=== PATIENT | female | born 1975 | race American Indian/Alaskan Native ===

== ENCOUNTER 2016-03-27 23:17 | Inpatient (IN) | payer OTHER ==
[2016-03-28 00:41] LABS: BUN/Creatinine Ratio 14.28; Blood Urea Nitrogen 10 mg/dL (7-17); Carbon Dioxide 27 mmol/L (22-30); Glucose 108 mg/dL (65-100); Sodium 138 mmol/L (137-145)
[2016-03-28 00:47] LABS: Anion Gap 16 mmol/L
[2016-03-28 01:29] LABS: Basophils % (Auto) 0.9 % (0.0-1.8); Eosinophils % (Auto) 1.9 % (0.0-4.3); Hematocrit 31.7 % (30.3-42.9); Hemoglobin 9.7 gm/dl (10.1-14.3); Mean Corpuscular HGB Conc 30 % (30-34); Mean Corpuscular Hemoglobin 21 pg (28-32); Mean Corpuscular Volume 70 fl (79-97); Platelet Count 346 K/mm3 (140-440); Red Blood Count 4.53 M/mm3 (3.65-5.03); Red Cell Distribution Width 19.8 % (13.2-15.2); White Blood Count 10.2 K/mm3 (4.5-11.0)
[2016-03-28 02:59] LABS: Bacteria,Urine 1+ /HPF (Negative); Mucus,Urine 2+ /HPF
[2016-03-28 03:35] LABS: Bilirubin,Urine Negative (Negative); Ketones,Urine Negative (Negative)
[2016-03-28 03:36] LABS: Blood,Urine Negative (Negative); Leukocyte Esterase,Urine Negative (Negative); Nitrite,Urine Negative (Negative); Protein,Urine <15 mg/dL mg/dL (Negative); Urobilinogen,Urine 0.2 mg/dL (<2.0)
[2016-03-28] MEDS ORDERED: MORPHINE IV ONE (15:13)
[2016-03-28] MEDS ORDERED: ZOFRAN IV ONE (15:13)
[2016-03-28] MEDS ORDERED: NITRO-BID 2% TP ONE (15:13)
--- NOTE | 2016-03-28 15:18 | Emergency Department Report ---
HPI - General Chief Complaint: Chest Pain Time Seen by Provider: 03/28/16 15:02 - HPI HPI: Room 7 The patient is a 40-year-old female presenting with a chief complaint of chest pain. Patient states for the past 2 days she intermittent left chest pain that is sharp in nature. The patient states pain is breath but denies nausea/ vomiting or diaphoresis. Patient denies cough or fever. The patient currently gives her pain a score of 9/10. The patient states she's never had a stress test or cardiac catheterization. Patient denies any recent flights or long car trips Location: Left chest Duration: Intermittent 2 days Quality: Sharp Severity: 9/10 Modifying factors: Unknown Context: [see above] Mode of transportation: [not driving] ED Past Medical Hx - Past Medical History Previous Medical History?: Yes Hx Hypertension: Yes Hx Asthma: Yes Additional medical history: BRONCHITIS - Surgical History Past Surgical History?: Yes Additional Surgical History: "" - Family History Family history: no significant - Social History Smoking Status: Never Smoker Substance Use Type: Alcohol (occasional) - Medications Home Medications: Home Medications Medication Instructions Recorded Confirmed Last Taken Type ALBUTEROL Inhaler [ProAir HFA 1 puff IH Q4H PRN #1 inha 06/07/14 03/28/16 Unknown Rx Inhaler] guaiFENesin/CODEINE [Robitussin AC] 15 ml PO Q6H PRN #100 ml 06/07/14 03/28/16 Unknown Rx predniSONE [Deltasone] 10 mg PO QDAY PRN 03/28/16 03/28/16 Unknown History ED Review of Systems ROS: Stated complaint: CP/BACK PAIN/LUCERO Other details as noted in HPI Comment: All other systems reviewed and negative Constitutional: denies: fever Eyes: denies: eye pain, eye discharge, vision change ENT: denies: ear pain, throat pain Respiratory: shortness of breath Cardiovascular: chest pain Endocrine: no symptoms reported Gastrointestinal: denies: abdominal pain, nausea, diarrhea Genitourinary: denies: urgency, dysuria, discharge Musculoskeletal: back pain Skin: denies: rash, lesions Neurological: denies: headache, weakness, paresthesias Psychiatric: denies: anxiety, depression Hematological/Lymphatic: denies: easy bleeding, easy bruising Physical Exam - Physical Exam Vital Signs: Vital Signs 01/03/28/16 03/28/16 23:23 08:36 14:23 Temperature 98.6 F 98.0 F Pulse Rate 92 H 81 76 Respiratory 20 20 18 Rate Blood Pressure 148/91 Blood Pressure 131/83 140/74 [Right] O2 Sat by Pulse 100 100 100 Oximetry Physical Exam: GENERAL: The patient is well-developed well-nourished female lying on stretcher not appearing to be in acute distress. [] HEENT: Normocephalic. Atraumatic. Extraocular motions are intact. Patient has moist mucous membranes. NECK: Supple. Trachea midline CHEST/LUNGS: Clear to auscultation. There is no respiratory distress noted. HEART/CARDIOVASCULAR: Regular. There is no tachycardia. There is no gallop rub or murmur. ABDOMEN: Abdomen is soft, nontender. Patient has normal bowel sounds. There is no abdominal distention. SKIN: There is no rash. There is no edema. There is no diaphoresis. NEURO: The patient is awake, alert, and oriented. The patient is cooperative. The patient has normal speech MUSCULOSKELETAL: There is lumbar pain signs worsened with movement. There is no axial step off. There is no evidence of acute injury. ED Course Vital Signs 03/27/16 03/28/16 03/28/16 23:23 08:36 14:23 Temperature 98.6 F 98.0 F Pulse Rate 92 H 81 76 Respiratory 20 20 18 Rate Blood Pressure 148/91 Blood Pressure 131/83 140/74 [Right] O2 Sat by Pulse 100 100 100 Oximetry ED Medical Decision Making - Lab Data Result diagrams: 03/28/16 00:03 03/28/16 00:03 Laboratory Tests 03/28/16 03/28/16 03/28/16 00:03 00:03 01:50 WBC 10.2 RBC 4.53 Hgb 9.7 L Hct 31.7 MCV 70 L MCH 21 L MCHC 30 RDW 19.8 H Plt Count 346 Lymph % (Auto) 28.1 [place] % (Auto) 9.0 H Eos % (Auto) 1.9 Baso % (Auto) 0.9 Lymph # 2.9 [place] # 0.9 H Eos # 0.2 Baso # 0.1 Seg Neutrophils % 60.1 Seg Neutrophils # 6.1 Sodium 138 Potassium 4.0 Chloride 99.0 Carbon Dioxide 27 Anion Gap 16 BUN 10 Creatinine 0.7 Estimated GFR > 60 BUN/Creatinine Ratio 14.28 Glucose 108 H Calcium 9.0 Troponin T < 0.010 Urine Color Yellow Urine Turbidity Clear Urine pH 5.0 Ur Specific [place] 1.025 Urine Protein <15 mg/dl Urine Glucose (UA) Negative Urine Ketones Negative Urine Blood Negative Urine Nitrite Negative Ur Reducing Substances Not Reportable Urine Bilirubin Negative Urine Ictotest Not Reportable Urine Urobilinogen 0.2 Ur Leukocyte Esterase Negative Urine WBC (Auto) 10.0 H Urine RBC (Auto) 2.0 U Epithel Cells (Auto) 1.0 Urine Bacteria (Auto) 1+ Urine Mucus 2+ Urine HCG, Qual Negative 03/28/16 03/28/16 02:57 06:14 WBC RBC Hgb Hct MCV MCH MCHC RDW Plt Count Lymph % (Auto) [place] % (Auto) Eos % (Auto) Baso % (Auto) Lymph # [place] # Eos # Baso # Seg Neutrophils % Seg Neutrophils # Sodium Potassium Chloride Carbon Dioxide Anion Gap BUN Creatinine Estimated GFR BUN/Creatinine Ratio Glucose Calcium Troponin T < 0.010 < 0.010 Urine Color Urine Turbidity Urine pH Ur Specific [place] Urine Protein Urine Glucose (UA) Urine Ketones Urine Blood Urine Nitrite Ur Reducing Substances Urine Bilirubin Urine Ictotest Urine Urobilinogen Ur Leukocyte Esterase Urine WBC (Auto) Urine RBC (Auto) U Epithel Cells (Auto) Urine Bacteria (Auto) Urine Mucus Urine HCG, Qual - EKG Data -: EKG Interpreted by Me EKG shows normal: sinus rhythm Rate: normal - EKG Data When compared to previous EKG there are: previous EKG unavailable - Radiology Data Radiology results: image reviewed (chest x-ray) interpreted by me: Chest x-ray-no focal infiltrates, no pneumothorax - Differential Diagnosis ACS, pericarditis, GERD Critical care attestation.: If time is entered above; I have spent that time in minutes in the direct care of this critically ill patient, excluding procedure time. ED Disposition Clinical Impression: Chest pain Disposition: OP ADMITTED IP TO THIS HOSP Is pt being admited?: Yes Does the pt Need Aspirin: Yes Condition: Fair Instructions: Chest Pain (ED) Referrals: PRIMARY CARE, [Primary Care Provider] - 3-5 Days Time of Disposition: 15:25 (hospitalist notified)
[2016-03-28] MEDS ORDERED: ASPIRIN PO ONE (15:26)
--- NOTE | 2016-03-28 20:35 | Admit Criteria Form ---
Admission Criteria Documentation: CARDIOLOGY GRG Clinical Indications for Admission to Inpatient Care ( Place 'X' for any and all applicable criteria): Hospital admission is needed for appropriate care of the patient because of ANY ONE of the following (1): [ ] I. Hemodynamic instability as indicated by ALL of the following (1)(2)(3) (4)(5) [ ]a) Vital signs or other findings not as expected for chronic patient condition or baseline [ ]b) Instability indicated by ANY ONE of the following: [ ]i) Hypotension [ ]ii) Symptomatic Tachycardia unresponsive to treatment ( e.g., analgesia, fluids, sedation as indicated) [ ]iii) Inadequate perfusion indicated by ANY ONE of the following: [ ] 1) Lactic acidosis (> 2 mmol/L) [ ] 2) New abnormal capillary refill (> 3 seconds) [ ] 3) Reduced urine output [ ] 4) New altered mental status [ ]iv) Orthostatic vital sign changes unresponsive to treatment (e.g., fluids) [ ]v) IV inotropic or vasopressor medication required to maintain adequate blood pressure or perfusion [ ] II. Severe heart failure as indicated by ANY ONE of the following(17)(18) [ ]a) Respiratory distress [ ]b) Hypotension [ ]c) Anasarca (refractory to outpatient therapy) [ ]d) Cardiac arrhythmias of immediate concern [ ]e) Myocardial ischemia [ ] III. Cardiac arrhythmias or findings of immediate concern indicated by ANY ONE of the following (19)(20): [ ] a) Heart rhythms that are inherently dangerous or unstable indicated by ANY ONE of the following (21)(22)(23): [ ] i) Resuscitated ventricular fibrillation or cardiac arrest [ ] ii) Ventricular escape rhythm [ ] iii) Sustained ventricular tachycardia (30 seconds or more of ventricular rhythm at greater than 100 beats per minute) [ ] iv) Nonsustained ventricular tachycardia and ANY ONE of the following: [ ] 1) Suspected cardiac ischemia as cause or consequence of ventricular tachycardia [ ] 2) In setting of acute myocarditis [ ] b) Unstable cardiac conduction defects indicated by ANY ONE of the following(23)(24)(25) [ ] i) Type II second-degree atrioventricular block [ ]ii) Third-degree atrioventricular block [ ]iii) New-onset left bundle branch block with suspected myocardial ischemia [ ]c) Any heart rhythm and ANY ONE of the following (21)(22)(26)(27) (28) [ ] i) Continuous long-term ECG monitoring needed (e.g., initiation of drug requiring monitoring for more than 24 hours) [ ] ii) Patient has automatic implanted cardioverter defibrillator that is repeatedly firing, malfunctioning, or in need of immediate adjustment of settings beyond the scope of ambulatory or observation care [ ]d) Heart rhythms of concern due to ANY ONE of the following: [ ] i) Hypotension [ ] ii) Respiratory distress [ ] iii) Association with other significant symptoms (e.g., bradycardia with syncope or ongoing dizziness, supraventricular tachycardia with chest pain (14)(15)(17) [ ] IV. Monitoring for cardiac contusion beyond the scope of observation care needed [A](30)(31)(32) [ ] V. Surgical or device complication (e.g., valve replacement complication , pacemaker dysfunction) (35)(41)(44)(45)(46) [ ] . Inpatient palliative care needed. [B](49) Also use Inpatient Palliative Care Criteria [ ] VII. Nonbacterial thrombotic (marantic) endocarditis (36)(43)(47)(48) [X ] VIII. Cardiology condition, symptom, or finding for which emergency and observation care has failed or are not considered appropriate. [ ] IX. Acute valvular disease requiring inpatient as indicated by ANY ONE of the following (41) [ ]a) Acute valvular regurgitation (42) [ ]b) Noninfectious valvulitis (43) [ ]c) Obstructive valve thrombosis [ ]d) Paravalvular leak [ ]e) Other significant valvular disorder remaining after emergency or observation level of care (as appropriate) [ ]X. Pericardial disease requiring inpatient treatment as indicated by ANY ONE of the following (33)(34)(35)(36)(37) [ ]a) Suspected tamponade (38)(39)(40) [ ]b) Hemopericardium [ ]c) Other significant pericardial disorder remaining after emergency or observation level of care (as appropriate) [ ] XI. Cardiac ischemia beyond scope of emergency and observation care. [ ] XII. Hypertension requiring inpatient treatment as indicated by ANY ONE of the following (6)(7)(8) [ ]a) SBP greater than 220 mm Hg or DBP greater than 120 mmHg despite treatment [ ]b) SBP greater than 140 mm Hg or DBP greater than 100 mm Hg with evidence of acute end organ damage as indicated by ANY ONE of the following [ ] i) Altered mental status [ ] ii) Acute renal failure as indicated by new onset of ANY ONE of the following (9)(10)(11)(12)(13) [ ]1) 3-fold rise in serum creatinine from baseline [ ]2) Serum creatinine greater than 4 mg/dL ( 354 micromoles/L) with acute rise greater than 0.5 mg/dL (44.2 micromoles/L) [ ]3) Reduction of more than 75% in estimated glomerular filtration rate from baseline [ ]4) Estimated glomerular filtration rate less than 35 mL/min/1.73m2 (0.59 mL/sec/1.73m2) in child up to 18 years of age [ ]5) Cessation of urine output indicated by ALL of the following [ ]A. Adequate volume status [ ]B. Inadequate urine output as indicated by ANY ONE of the following [ ]a. Urine output less than 0.3 mL/kg/hr for 24 hours [ ]b. Anuria (urine output less than 0.1 mL/kg/hr) for 12 hours [ ] iii) Aortic dissection [ ] iv) Myocardial Ischemia [ ] v) Left ventricular heart failure [ ]vi) Retinal Hemorrhage [ ]vii) Other significant finding [ ]c) Hypertension in child requiring inpatient treatment as indicated by ALL of the following(14)(15)(16) [ ] i) Outpatient treatment not effective, not available, or not appropriate [ ]ii) SBP or DBP greater than 95th percentile for age [ ]iii) Evidence of acute end organ damage as indicated by ANY ONE of the following [ ]1) Altered mental status [ ]2) Acute renal failure as indicated by new onset of ANY ONE of the following(9)(10)(11)(12)(13) [ ]A. 3-fold rise in serum creatinine from baseline [ ]B. Serum creatinine greater than 4 mg/dL (354 micromoles/L) with acute rise greater than 0.5 mg/dL (44.2 micromoles/L) [ ]C. Reduction of more than 75% in estimated glomerular filtration rate from baseline [ ]D. Estimated glomerular filtration rate less than 35 mL/min/1.73m2 (0.59 mL/sec/1.73m2) in child up to 18 years of age [ ]E. Cessation of urine output indicated by ALL of the following [ ]a. Adequate volume status [ ]b. Inadequate urine output as indicated by ANY ONE of the following [ ]i) Urine output less than 0.3 mL/kg/hr for 24 hours [ ]ii) Anuria ( urine output less than 0.1 mL/kg/hr) for 12 hours [ ]3) Severe headache [ ]4) Visual disturbance [ ]5) Retinal hemorrhage [ ]6) Other significant finding [ ]XIII. Complications of transplanted heart indicated by ANY ONE of the following(61): [ ]a) Acute graft rejection requiring inpatient management (eg, intravenous immunosuppression)(62)(63) [ ]b) Acute graft heart failure indicated by ANY ONE of the following(64): [ ]i) Hemodynamic instability [ ]ii) Cardiac arrhythmias of immediate concern [ ]iii) Pulmonary edema that is very severe (eg, mechanical ventilation needed, imminent or likely, need for 100% oxygen to keep oxygen saturation above 90%) [ ]iv) Pulmonary edema that is persistent as indicated by ALL of the following: [ ]1) New need for oxygen therapy to keep oxygen saturation above 90% (or increased FiO2 need from baseline) [ ]2) Has not improved sufficiently with emergency department or observation care IV diuretics or other heart failure treatments[E] [ ]v) Altered mental status that is severe or persistent [ ]vi) Increased creatinine (new on laboratory test) with reduction of more than 50% in estimated glomerular filtration rate from baseline [ ]vii) Progressively (ongoing) rising creatinine (known from past laboratory test) with reduction of more than 25% in estimated glomerular filtration rate from baseline [ ]viii) Acute renal failure [ ]ix) Acute peripheral ischemia (eg, examination shows pulseless, cool, mottled, or cyanotic extremity) [ ]x) Pulmonary artery catheter monitoring needed [ ]xi) Other sign or symptom of heart failure requiring inpatient treatment (ie, too severe or not responsive to outpatient and observation care treatment) [ ]c) Infection requiring inpatient management (eg, Hemodynamic instability, need for intravenous antimicrobial treatment)(66)(67)(68)(69)(70) [ ]d) Cardiac allograft vasculopathy requiring inpatient management ( eg evidence of cardiac ischemia)(71) [ ]e) Other complication of transplanted heart (eg, stroke, severe pulmonary hypertension, severe valvular dysfunction) requiring inpatient management(72) The original [facility] [employer] content created by [facility] has been revised. The portions of the content which have been revised are identified through the use of italic text or in bold, and [facility] has neither reviewed nor approved the modified material. All other unmodified content is copyright [facility] [employer]. Please see references footnoted in the original [facility] [employer] edition 2016 Admission Criteria Met: Yes
--- NOTE | 2016-03-29 02:32 | History and Physical Report ---
History of Present Illness Date of examination: 03/29/16 Date of admission: 03/29/16 Chief complaint: chest pain History of present illness: This is a 40-year-old female presents with chief complaint of chest pain. Patient reports left chest pain that has been persistent for the past 2 days. He states that the pain has been intermittent but worsening over the course of the day prior to admission which prompted her visit to the emergency room. Patient states that the pain is associated with movement of her left arm and is reproducible with palpation. Patient also complains of cough and cold symptoms but no sputum production. Patient denies any nausea, vomiting or diaphoresis. No headache or visual disturbances. Patient also reports pain with deep inspiration and coughing. Pt. also reports mild wheezing. Past History Past Medical History: other (asthma) Past Surgical History: No surgical history Social history: no significant social history Family history: no significant family history Medications and Allergies Allergies Allergy/AdvReac Type Severity Reaction Status Date / Time Penicillins Allergy Unknown Verified 06/05/14 18:11 Home Medications Medication Instructions Recorded Confirmed Last Taken Type ALBUTEROL Inhaler [ProAir HFA 1 puff IH Q4H PRN #1 inha 06/07/14 03/28/16 Unknown Rx Inhaler] guaiFENesin/CODEINE [Robitussin AC] 15 ml PO Q6H PRN #100 ml 06/07/14 03/28/16 Unknown Rx predniSONE [Deltasone] 10 mg PO QDAY PRN 03/28/16 03/28/16 Unknown History Review of Systems All systems: negative Exam - Constitutional Vitals: Temp Pulse Resp BP Pulse Ox 98.0 F 100 H 18 100/60 100 03/28/16 08:36 03/28/16 18:31 03/28/16 18:31 03/28/16 18:31 03/28/16 18:31 General appearance: Present: no acute distress, well-nourished - EENT Eyes: Present: PERRL ENT: hearing intact, clear oral mucosa - Neck Neck: Present: supple, normal ROM - Respiratory Respiratory effort: normal Respiratory: bilateral: CTA - Cardiovascular Heart Sounds: Present: S1 & S2. Absent: rub, click - Extremities Extremities: pulses symmetrical, No edema Peripheral Pulses: within normal limits - Abdominal General gastrointestinal: Present: soft, non-tender, non-distended, normal bowel sounds Female genitourinary: Present: normal - Integumentary Integumentary: Present: clear, warm, dry - Musculoskeletal Musculoskeletal: strength equal bilaterally, other (pain with palpation of left chest) - Psychiatric Psychiatric: appropriate mood/affect, intact judgment & insight - Neurologic Neurologic: CNII-XII intact, moves all extremities Results - Labs CBC & Chem 7: 03/28/16 00:03 03/28/16 00:03 Labs: Laboratory Last Values WBC 10.2 K/mm3 (4.5-11.0) 03/28/16 00:03 RBC 4.53 M/mm3 (3.65-5.03) 03/28/16 00:03 Hgb 9.7 gm/dl (10.1-14.3) L 03/28/16 00:03 Hct 31.7 % (30.3-42.9) 03/28/16 00:03 MCV 70 fl (79-97) L 03/28/16 00:03 MCH 21 pg (28-32) L 03/28/16 00:03 MCHC 30 % (30-34) 03/28/16 00:03 RDW 19.8 % (13.2-15.2) H 03/28/16 00:03 Plt Count 346 K/mm3 (140-440) 03/28/16 00:03 Lymph % (Auto) 28.1 % (13.4-35.0) 03/28/16 00:03 [place] % (Auto) 9.0 % (0.0-7.3) H 03/28/16 00:03 Eos % (Auto) 1.9 % (0.0-4.3) 03/28/16 00:03 Baso % (Auto) 0.9 % (0.0-1.8) 03/28/16 00:03 Lymph # 2.9 K/mm3 (1.2-5.4) 03/28/16 00:03 [place] # 0.9 K/mm3 (0.0-0.8) H 03/28/16 00:03 Eos # 0.2 K/mm3 (0.0-0.4) 03/28/16 00:03 Baso # 0.1 K/mm3 (0.0-0.1) 03/28/16 00:03 Seg Neutrophils % 60.1 % (40.0-70.0) 03/28/16 00:03 Seg Neutrophils # 6.1 K/mm3 (1.8-7.7) 03/28/16 00:03 Sodium 138 mmol/L (137-145) 03/28/16 00:03 Potassium 4.0 mmol/L (3.6-5.0) 03/28/16 00:03 Chloride 99.0 mmol/L (98-107) 03/28/16 00:03 Carbon Dioxide 27 mmol/L (22-30) 03/28/16 00:03 Anion Gap 16 mmol/L 03/28/16 00:03 BUN 10 mg/dL (7-17) 03/28/16 00:03 Creatinine 0.7 mg/dL (0.7-1.2) 03/28/16 00:03 Estimated GFR > 60 ml/min 03/28/16 00:03 BUN/Creatinine Ratio 14.28 % 03/28/16 00:03 Glucose 108 mg/dL (65-100) H 03/28/16 00:03 Calcium 9.0 mg/dL (8.4-10.2) 03/28/16 00:03 Troponin T < 0.010 ng/mL (0.00-0.029) 03/28/16 06:14 Urine Color Yellow (Yellow) 03/28/16 01:50 Urine Turbidity Clear (Clear) 03/28/16 01:50 Urine pH 5.0 (5.0-7.0) 03/28/16 01:50 Ur Specific [place] 1.025 (1.003-1.030) 03/28/16 01:50 Urine Protein <15 mg/dl mg/dL (Negative) 03/28/16 01:50 Urine Glucose (UA) Negative mg/dL (Negative) 03/28/16 01:50 Urine Ketones Negative mg/dL (Negative) 03/28/16 01:50 Urine Blood Negative (Negative) 03/28/16 01:50 Urine Nitrite Negative (Negative) 03/28/16 01:50 Ur Reducing Substances Not Reportable 03/28/16 01:50 Urine Bilirubin Negative (Negative) 03/28/16 01:50 Urine Ictotest Not Reportable 03/28/16 01:50 Urine Urobilinogen 0.2 mg/dL (<2.0) 03/28/16 01:50 Ur Leukocyte Esterase Negative (Negative) 03/28/16 01:50 Urine WBC (Auto) 10.0 /HPF (0.0-6.0) H 03/28/16 01:50 Urine RBC (Auto) 2.0 /HPF (0.0-6.0) 03/28/16 01:50 U Epithel Cells (Auto) 1.0 /HPF (0-13.0) 03/28/16 01:50 Urine Bacteria (Auto) 1+ /HPF (Negative) 03/28/16 01:50 Urine Mucus 2+ /HPF 03/28/16 01:50 Urine HCG, Qual Negative (Negative) 03/28/16 01:50 Assessment and Plan Assessment and plan: 1. Mild acute asthma exacerbation. Patient will be placed on the asthma pathway and received IV steroids and bronchodilators. 2. Acute bronchitis. Patient will receive IV antibiotics. 3. Chest pain. I set chest pain is related to #1 +/-costochondritis. Patient reports reproducible pain with palpation. If the pain does not resolve, consider stress thallium.
[2016-03-29] MEDS ORDERED: ZOFRAN IV PRN (02:53)
[2016-03-29] MEDS ORDERED: MILK OF MAGNESIA PO PRN (02:53)
[2016-03-29] MEDS ORDERED: DULCOLAX PR PRN (02:53)
[2016-03-29] MEDS ORDERED: LEVAQUIN 500MG/100ML 100 ML IV ONE (04:00)
[2016-03-29] MEDS: TYLENOL PO PRN ×3 (06:40→21:11)
[2016-03-29 08:20] LABS: Anion Gap 15 mmol/L; Blood Urea Nitrogen 18 mg/dL (7-17); Calcium 8.7 mg/dL (8.4-10.2); Carbon Dioxide 26 mmol/L (22-30); Chloride 101.4 mmol/L (98-107); Glucose 103 mg/dL (65-100); Sodium 137 mmol/L (137-145)
[2016-03-29 08:31] LABS: Hematocrit 26.7 % (30.3-42.9); Hemoglobin 8.1 gm/dl (10.1-14.3); Mean Corpuscular HGB Conc 31 % (30-34); Mean Corpuscular Volume 71 fl (79-97); Platelet Count 302 K/mm3 (140-440); Red Blood Count 3.78 M/mm3 (3.65-5.03); Red Cell Distribution Width 19.1 % (13.2-15.2); White Blood Count 8.2 K/mm3 (4.5-11.0)
[2016-03-29 08:33] LABS: Mean Corpuscular Hemoglobin 22 pg (28-32)
[2016-03-29 09:37] LABS: Basophils % (Manual) 0 % (0.0-1.8); Blastocytes % (Manual) 0 %; Eosinophils % (Manual) 0 % (0.0-4.3)
[2016-03-29 09:38] LABS: Diff Status Complete; Hypochromasia 2+; Polychromasia Rare; Target Cells Rare
--- NOTE | 2016-03-29 10:18 | XRay Report ---
SINGLE VIEW CHEST: Compared to 06/05/14. HISTORY: Chest pain. FINDINGS: Normal cardiomediastinal silhouette. Trachea is midline. No consolidation, pneumothorax or pleural effusion. IMPRESSION: No acute cardiopulmonary findings.
[2016-03-29] MEDS: LOVENOX SUB-Q SCH (12:10)
--- NOTE | 2016-03-29 16:25 | Event Note ---
Date: 03/29/16 Ptient seen and examined, admitted this morning with acute asthma exacerbation. will continue current management as dictated in H and P. 1. Mild acute asthma exacerbation. Patient on IV steroids and bronchodilators. 2. Acute bronchitis. will continue IV antibiotics. 3. Chest pain. likely due to costochondritis. Patient reports reproducible pain with palpation. cannot r/o ACS, will do stress thallium in the am.
[2016-03-30] MEDS ORDERED: MORPHINE IV PRN (05:46)
[2016-03-30 07:01] LABS: Hemoglobin 8.3 gm/dl (10.1-14.3); Mean Corpuscular HGB Conc 30 % (30-34); Mean Corpuscular Hemoglobin 21 pg (28-32); Mean Corpuscular Volume 70 fl (79-97); Platelet Count 307 K/mm3 (140-440); Red Blood Count 3.97 M/mm3 (3.65-5.03); Red Cell Distribution Width 19.2 % (13.2-15.2); White Blood Count 17.2 K/mm3 (4.5-11.0)
[2016-03-30 07:20] LABS: Anion Gap 17 mmol/L; Blood Urea Nitrogen 14 mg/dL (7-17); Calcium 8.8 mg/dL (8.4-10.2); Carbon Dioxide 23 mmol/L (22-30); Chloride 100.7 mmol/L (98-107); Glucose 121 mg/dL (65-100); Sodium 137 mmol/L (137-145)
[2016-03-30] MEDS ORDERED: LEXISCAN IV ONE ×2 (08:16→08:30)
[2016-03-30] MEDS ORDERED: LEVAQUIN 500MG/100ML 100 ML IV SCH (10:00)
[2016-03-30] MEDS: LOVENOX SUB-Q SCH (10:25)
--- NOTE | 2016-03-30 11:20 | Consultation ---
History of Present Illness Consult date: 03/30/16 Consult reason: chest pain History of present illness: 40 YO woman with h/o asthma who presented to hospital with worsening wheezing and chest discomfort. She describes the pain as a "soreness" in her chest which is worse when she coughs. Her pain is reproducible by palpitation of her precordium. NV has been ruled out with negative cardiac enzymes. ECG reveals NSR with no significant abnromality She underwent MPI this morning which preliminarily revealed minimal inferior apical defect - very small volume of myocardia ischemia can not be excluded. Overall this is a low risk scan. Past History Past Medical History: other (asthma) Past Surgical History: No surgical history Social history: no significant social history Family history: no significant family history Medications and Allergies Allergies Allergy/AdvReac Type Severity Reaction Status Date / Time Penicillins Allergy Unknown Verified 06/05/14 18:11 Home Medications Medication Instructions Recorded Confirmed Last Taken Type ALBUTEROL Inhaler [ProAir HFA 1 puff IH Q4H PRN #1 inha 06/07/14 03/28/16 Unknown Rx Inhaler] guaiFENesin/CODEINE [Robitussin AC] 15 ml PO Q6H PRN #100 ml 06/07/14 03/28/16 Unknown Rx predniSONE [Deltasone] 10 mg PO QDAY PRN 03/28/16 03/28/16 Unknown History Active Meds: Active Medications Acetaminophen (Tylenol) 650 mg PO Q4H PRN PRN Reason: Pain MILD(1-3)/Fever >100.5/LUCERO Last Admin: 03/29/16 21:11 Dose: 650 mg Bisacodyl (Dulcolax) 10 mg CA QDAY PRN PRN Reason: Constipation unrelieved by MOM Enoxaparin Sodium (Lovenox) 40 mg SUB-Q QDAY [facility] Last Admin: 03/30/16 10:25 Dose: 40 mg Levofloxacin/Dextrose (Levaquin 500mg/100ml) 100 mls @ 100 mls/hr IV DAILY [facility] Last Admin: 03/30/16 10:25 Dose: 100 mls/hr Magnesium Hydroxide (Milk Of Magnesia) 30 ml PO Q4H PRN PRN Reason: Constipation Methylprednisolone Sodium Succinate (Solu-Medrol) 40 mg IV Q8HR [facility] Last Admin: 03/30/16 05:48 Dose: 40 mg Morphine Sulfate (Morphine) 2 mg IV Q4H PRN PRN Reason: Pain, Moderate (4-6) Last Admin: 03/30/16 05:55 Dose: 2 mg Ondansetron HCl (Zofran) 4 mg IV Q8H PRN PRN Reason: N/V unrelieved by Wei Last Admin: 03/30/16 05:55 Dose: 4 mg Review of Systems All systems: negative (per hpi) Physical Examination Vital Signs Temp Pulse Resp BP Pulse Ox 98.6 F 92 H 20 131/83 100 03/27/16 23:23 03/27/16 23:23 03/27/16 23:23 03/27/16 23:23 03/27/16 23:23 General appearance: no acute distress HEENT: Positive: PERRL Neck: Positive: neck supple Cardiac: Positive: Reg Rate and Rhythm. Negative: Audible Murmur Lungs: Positive: Wheezes Neuro: Positive: Grossly Intact Abdomen: Positive: Soft, Active Bowel Sounds Extremities: Absent: edema Results 03/30/16 06:25 03/30/16 06:25 CBC 03/30/16 Range/Units 06:25 WBC 17.2 H (4.5-11.0) K/mm3 RBC 3.97 (3.65-5.03) M/mm3 Hgb 8.3 L (10.1-14.3) gm/dl Hct 28.0 L (30.3-42.9) % Plt Count 307 (140-440) K/mm3 Lymph # 1.8 (1.2-5.4) K/mm3 [place] # 0.6 (0.0-0.8) K/mm3 Eos # 0.0 (0.0-0.4) K/mm3 Baso # 0.0 (0.0-0.1) K/mm3 Comprehensive Metabolic Panel 03/30/16 Range/Units 06:25 Sodium 137 (137-145) mmol/L Potassium 4.0 (3.6-5.0) mmol/L Chloride 100.7 (98-107) mmol/L Carbon Dioxide 23 (22-30) mmol/L BUN 14 (7-17) mg/dL Creatinine 0.7 (0.7-1.2) mg/dL Glucose 121 H (65-100) mg/dL Calcium 8.8 (8.4-10.2) mg/dL Assessment and Plan Atypical reproducible chest pain. Doubt myocardial ischemia MPI preliminarily revealed minimal inferior apical defect - very small volume of myocardia ischemia can not be excluded. This is a low risk scan. Asthma Recommend: Add low dose aspirin Check lipids and add statin if elevated. Will defer beta prashanth due to asthma Consider coronary angiogram if she has future episodes of chest pain suggestive of angina.
--- NOTE | 2016-03-30 15:29 | Discharge Summary ---
Providers - Providers Date of Admission: 03/29/16 02:53 Date of discharge: 03/30/16 Attending physician: MATHEW FOX Primary care physician: FLIGHT READINESS TECHNICIAN Hospitalization Condition: Fair Hospital course: HPI: 40 YO woman with h/o asthma who presented to hospital with worsening wheezing and chest discomfort. She describes the pain as a "soreness" in her chest which was worse when she coughs. Her pain was reproducible by palpitation of her precordium. OH has been ruled out with negative cardiac enzymes. ECG revealed NSR with no significant abnromality. She underwent MPI which preliminarily revealed minimal inferior apical defect - very small volume of myocardia ischemia can not be excluded but Overall this was a low risk scan. clerk cashier recommended cardiac cath if typical angina develops in future. Discharge Diagnosis and management per problem: 1. Mild acute asthma exacerbation. * Patient was placed on IV steroids and bronchodilators with nebulizer. * symptom improved before discharge 2. Acute bronchitis. * was placed on IV levaquin. 3. Atypical Chest pain. * likely due to costochondritis. * Patient reports reproducible pain with palpation. * stress thallium was low risk scan. * placed on aspirin and statin * out pt cardiology follow up 4. Leukocytosis, likely steroid induced Disposition: DISCHARGED TO HOME OR SELFCARE Time spent for discharge: 35 minutes Core Measure Documentation - Palliative Care Palliative Care/ Comfort Measures: Not Applicable - Core Measures Any of the following diagnoses?: none Exam - Constitutional Vitals: Temp Pulse Resp BP Pulse Ox 98.2 F 91 H 18 145/82 98 03/30/16 15:06 03/30/16 15:06 03/30/16 15:06 03/30/16 15:06 03/30/16 15:06 General appearance: Present: no acute distress - EENT Eyes: Present: PERRL, EOM intact ENT: hearing intact, clear oral mucosa - Neck Neck: Present: supple, normal ROM - Respiratory Respiratory effort: normal Respiratory: bilateral: CTA - Cardiovascular Rhythm: regular Heart Sounds: Present: S1 & S2 - Extremities Extremities: no ischemia, No edema Peripheral Pulses: within normal limits - Abdominal General gastrointestinal: Present: soft, non-tender, non-distended - Integumentary Integumentary: Present: warm, dry - Musculoskeletal Musculoskeletal: strength equal bilaterally - Psychiatric Psychiatric: appropriate mood/affect, intact judgment & insight - Neurologic Neurologic: no focal deficits Plan Activity: advance as tolerated Weight Bearing Status: Weight Bear as Tolerated Diet: low cholesterol, low salt Follow up with: PRIMARY CARE, [Primary Care Provider] - 3-5 Days Prescriptions: AtorvaSTATin [Lipitor] 20 mg PO QHS #30 tablet Aspirin [Aspirin BABY CHEW TAB] 81 mg PO QDAY #30 tab.chew predniSONE [Deltasone] 50 mg PO QDAY #5 tab ALBUTEROL Inhaler [ProAir HFA Inhaler] 1 puff IH Q4H PRN #1 inha PRN Reason: Shortness Of Breath Azithromycin [Zithromax TAB] 500 mg PO QDAY #4 tablet
[2016-03-30 17:08] VITALS: BP 118/68
[2016-03-31] MEDS ORDERED: BABY ASPIRIN PO SCH (10:00)
--- NOTE | 2016-04-01 13:04 | Treadmill Report ---
THALLIUM STRESS TEST LEFT VENTRICLE: Left ventricular chamber size is within normal. Perfusion study demonstrates homogeneous uptake of the tracer in all segments. No significant perfusion defects identified. Normal apical thinning is noted. Gated analysis demonstrates normal left ventricular systolic function, ejection fraction 70%. CONCLUSION: Normal myocardial perfusion study. JOB# [id number] CA/NTS
== END 2016-03-30 19:45 | disposition home or self-care (01) | DRG 203 ==
LOC: ED 23:17 → 3A 03-29 02:53
PROVIDERS: ADMIT Hospitalist; ATTEND Internal Medicine
DX: J45.901 Unspecified asthma with (acute) exacerbation (principal); J20.9 Acute bronchitis, unspecified; M94.0 Chondrocostal junction syndrome [Tietze]; I10 Essential (primary) hypertension; D72.828 Other elevated white blood cell count; Z98.890 Other specified postprocedural states; Z88.0 Allergy status to penicillin; Z79.899 Other long term (current) drug therapy
CPT/HCPCS: 36415; 71010; 78452; 80048; 81001; 81025; 84484; 85007; 85025; 93005; 93010; 93017; 96374; 96375; A9502; J1650; J1956; J2270; J2405; J2785; J2920

== ENCOUNTER 2016-07-17 15:46 | Emergency (ER) | payer SELFPAY ==
--- NOTE | 2016-07-17 19:52 | Emergency Department Report ---
ED Female HPI - General Chief complaint: Back Pain/Injury Stated complaint: LOWER BACK PAIN,POSSIBLE BLADDER INFECTION Time Seen by Provider: 07/17/16 19:30 Source: patient Mode of arrival: Ambulatory Limitations: No Limitations - Related Data Previous Rx's Medication Instructions Recorded Last Taken Type guaiFENesin/CODEINE [Robitussin AC] 15 ml PO Q6H PRN #100 ml 06/07/14 Unknown Rx ALBUTEROL Inhaler [ProAir HFA 1 puff IH Q4H PRN #1 inha 03/30/16 Unknown Rx Inhaler] Aspirin [Aspirin BABY CHEW TAB] 81 mg PO QDAY #30 tab.chew 03/30/16 Unknown Rx AtorvaSTATin [Lipitor] 20 mg PO QHS #30 tablet 03/30/16 Unknown Rx Azithromycin [Zithromax TAB] 500 mg PO QDAY #4 tablet 03/30/16 Unknown Rx predniSONE [Deltasone] 50 mg PO QDAY #5 tab 03/30/16 Unknown Rx Allergies Allergy/AdvReac Type Severity Reaction Status Date / Time Penicillins Allergy Unknown Verified 06/05/14 18:11 ED Review of Systems ROS: Stated complaint: LOWER BACK PAIN,POSSIBLE BLADDER INFECTION Other details as noted in HPI ED Past Medical Hx - Past Medical History Previous Medical History?: Yes Hx Hypertension: Yes Hx Asthma: Yes Additional medical history: BRONCHITIS - Surgical History Past Surgical History?: Yes Additional Surgical History: "" - Social History Smoking Status: Current Every Day Smoker Substance Use Type: Alcohol, Non Opiate Pain - Medications Home Medications: Home Medications Medication Instructions Recorded Confirmed Last Taken Type guaiFENesin/CODEINE [Robitussin AC] 15 ml PO Q6H PRN #100 ml 06/07/14 03/28/16 Unknown Rx ALBUTEROL Inhaler [ProAir HFA 1 puff IH Q4H PRN #1 inha 03/30/16 Unknown Rx Inhaler] Aspirin [Aspirin BABY CHEW TAB] 81 mg PO QDAY #30 tab.chew 03/30/16 Unknown Rx AtorvaSTATin [Lipitor] 20 mg PO QHS #30 tablet 03/30/16 Unknown Rx Azithromycin [Zithromax TAB] 500 mg PO QDAY #4 tablet 03/30/16 Unknown Rx predniSONE [Deltasone] 50 mg PO QDAY #5 tab 03/30/16 Unknown Rx ED Physical Exam - General Limitations: No Limitations ED Course Vital Signs 07/17/16 16:27 Temperature 97.7 F Pulse Rate 92 H Respiratory 18 Rate Blood Pressure 126/76 O2 Sat by Pulse 100 Oximetry Critical care attestation.: If time is entered above; I have spent that time in minutes in the direct care of this critically ill patient, excluding procedure time. ED Disposition Condition: Stable
[2016-07-17] MEDS ORDERED: TORADOL IM ONE (19:57)
[2016-07-17 20:09] LABS: Bilirubin,Urine NEG (Negative); Blood,Urine NEG (Negative); Ketones,Urine NEG (Negative); Leukocyte Esterase,Urine MOD (Negative); Mucus,Urine FEW /HPF; Nitrite,Urine NEG (Negative); Protein,Urine <15 mg/dL mg/dL (Negative); Urobilinogen,Urine < 2.0 mg/dL (<2.0)
[2016-07-17] MEDS ORDERED: ZITHROMAX PO ONE (22:52)
[2016-07-17] MEDS ORDERED: FLAGYL PO ONE (22:52)
[2016-07-17] MEDS ORDERED: BENADRYL PO ONE (23:07)
[2016-07-17] MEDS ORDERED: ROCEPHIN IM ONE (23:07)
[2016-07-17] MEDS ORDERED: XYLOCAINE 1% MPF 5 mL INFILTRATI ONE (23:07)
--- NOTE | 2016-07-18 00:27 | Emergency Department Report ---
Entered by SELENA HALL, acting as scribe for ZULMA SANTANA PA. ED Female HPI - General Chief complaint: Back Pain/Injury Stated complaint: LOWER BACK PAIN,POSSIBLE BLADDER INFECTION Time Seen by Provider: 07/17/16 19:30 Source: patient Mode of arrival: Ambulatory Limitations: No Limitations - History of Present Illness Initial comments: 41 y/o female with a PMHx of HTN, asthma, and bronchitis presents to the ED c/o low back pain that began 3 weeks ago. Rates pain a 10/10 in severity. Patient states that she believes she has a UTI. Associated symptoms include yellow vaginal discharge, nausea, and vomiting, but she denies dysuria, fever and chills. Denies being sexually active. LMP 06/30/2016. Notes taking ProAir when needed. Notes non-compliancy to HTN medication. Allergic to penicillins. MD Complaint: vaginal discharge (yellow), other (low back pain) Onset/Timin -: week(s) Severity: moderate Severity scale (0 -10): 10 Consistency: constant Improves with: none Worsens with: none Are you Now?: No Last Menstrual Period: 06/30/16 EDC: 04/06/17 Associated Symptoms: denies other symptoms, vaginal discharge (yellow vaginal discharge), nausea/vomiting. denies: fever/chills, dysuria - Related Data Sexually active: No Previous Rx's Medication Instructions Recorded Last Taken Type guaiFENesin/CODEINE [Robitussin AC] 15 ml PO Q6H PRN #100 ml 06/07/14 Unknown Rx ALBUTEROL Inhaler [ProAir HFA 1 puff IH Q4H PRN #1 inha 03/30/16 Unknown Rx Inhaler] Aspirin [Aspirin BABY CHEW TAB] 81 mg PO QDAY #30 tab.chew 03/30/16 Unknown Rx AtorvaSTATin [Lipitor] 20 mg PO QHS #30 tablet 03/30/16 Unknown Rx Azithromycin [Zithromax TAB] 500 mg PO QDAY #4 tablet 03/30/16 Unknown Rx predniSONE [Deltasone] 50 mg PO QDAY #5 tab 03/30/16 Unknown Rx Allergies Allergy/AdvReac Type Severity Reaction Status Date / Time Penicillins Allergy Unknown Verified 06/05/14 18:11 ED Review of Systems Comment: All other systems reviewed and negative Constitutional: no symptoms reported. denies: chills, fever Gastrointestinal: nausea, vomiting Genitourinary: denies: dysuria Musculoskeletal: back pain (low back pain) ED Past Medical Hx - Past Medical History Previous Medical History?: Yes Hx Hypertension: Yes Hx Asthma: Yes Additional medical history: BRONCHITIS - Surgical History Past Surgical History?: Yes Additional Surgical History: "" - Social History Smoking Status: Current Every Day Smoker Substance Use Type: Alcohol, Non Opiate Pain - Medications Home Medications: Home Medications Medication Instructions Recorded Confirmed Last Taken Type guaiFENesin/CODEINE [Robitussin AC] 15 ml PO Q6H PRN #100 ml 06/07/14 03/28/16 Unknown Rx ALBUTEROL Inhaler [ProAir HFA 1 puff IH Q4H PRN #1 inha 03/30/16 Unknown Rx Inhaler] Aspirin [Aspirin BABY CHEW TAB] 81 mg PO QDAY #30 tab.chew 03/30/16 Unknown Rx AtorvaSTATin [Lipitor] 20 mg PO QHS #30 tablet 03/30/16 Unknown Rx Azithromycin [Zithromax TAB] 500 mg PO QDAY #4 tablet 03/30/16 Unknown Rx predniSONE [Deltasone] 50 mg PO QDAY #5 tab 03/30/16 Unknown Rx ED Physical Exam - General Limitations: No Limitations General appearance: alert, in no apparent distress - Head Head exam: Present: atraumatic, normocephalic - Eye Eye exam: Present: normal appearance, EOMI Pupils: Present: normal accommodation - ENT ENT exam: Present: normal exam, mucous membranes moist - Neck Neck exam: Present: normal inspection, full ROM - Respiratory Respiratory exam: Present: normal lung sounds bilaterally. Absent: respiratory distress, wheezes, rales, rhonchi - Cardiovascular Cardiovascular Exam: Present: regular rate, normal rhythm. Absent: systolic murmur, diastolic murmur, rubs, gallop - GI/Abdominal GI/Abdominal exam: Present: soft, normal bowel sounds. Absent: distended, tenderness, guarding, rebound, rigid - External exam: Present: normal external exam, other (female auxiliary power equipment operator present during the exam). Absent: erythema, swelling, lesions, lacerations, ecchymosis , bleeding Speculum exam: Present: vaginal discharge (milky, yellow), cervical discharge ( purulent milky, yellow discharge with friable cervix), other (female auxiliary power equipment operator present during the exam). Absent: erythema, vaginal bleeding Bi-manual exam: Present: normal bi-manual exam, cervical motion tendernes, other (female auxiliary power equipment operator present during the exam). Absent: adnexal tenderness, adnexal mass, uterine enlargement, uterine tenderness - Expanded Exam Expanded Female exam: Absent: vaginal laceration, tissue present in vagina, herpetic lesions, vulvar erythema, vulvar tenderness, foreign body Amniotic fluid: Present: none Speculum exam: Present: cervical OS closed, vaginal discharge (milky, yellow discharge). Absent: vaginal bleeding - Extremities Exam Extremities exam: Present: normal inspection, full ROM - Back Exam Back exam: Present: normal inspection, full ROM - Neurological Exam Neurological exam: Present: alert, oriented X3 - Psychiatric Psychiatric exam: Present: normal affect, normal mood - Skin Skin exam: Present: warm, dry, intact. Absent: rash ED Course Vital Signs 07/17/16 07/17/16 07/17/16 16:27 20:04 20:34 Temperature 97.7 F Pulse Rate 92 H Respiratory 18 18 18 Rate Blood Pressure 126/76 O2 Sat by Pulse 100 Oximetry ED Medical Decision Making - Medical Decision Making Patient was evaluated in fast track area of ED by this provider. Patient presented with low back pain for 3 weeks. In the ED, patient will be given a Toradol shot. Patient is in no acute distress at this time. She will be discharged with prescription for antibiotics. Patient instructed to follow up with PCP or OB if symptoms persist. Patient verbalized understanding. She is encouraged to return to the emergency room for any worsening symptoms. Discussed with patient that her tests showed positive for Trichomonas. Discussed the patient that we're like to treat her for gonorrhea and chlamydia which is standard practice in the emergency room. Discussed patient that because she is allergic to penicillin there is a 15-20% cross reaction to cephalosporin. Discussed with patient at the are several choices can provide for her. 1. We can give her the shot of Rocephin with oral Benadryl and watch her for a while. #2 discussed with patient that she can come back in 3-5 days to obtain her results at that time and then we can treat patient based on the results. Patient decides she would like to be treated with the Rocephin and Benadryl and to be watched for a while. I did discuss patient risks versus benefit. Patient reports that she prefers to have the treatment now. Patient is also being treated for trichomonas was given Flagyl 2000 mg now. Patient verbalized understanding ED Disposition Clinical Impression: Exposure to trichomonas, STD (female) Vaginitis Qualifiers: Chronicity: acute Qualified Code(s): N76.0 - Acute vaginitis Disposition: DISCHARGED TO HOME OR SELFCARE Is pt being admited?: No Does the pt Need Aspirin: No Condition: Stable Instructions: Trichomoniasis (ED), Sexually Transmitted Diseases (ED) Additional Instructions: Please come by medical records to obtain your cultures for gonorrhea and chlamydia tests. Please bring your ID Referrals: PRIMARY CARE,MD [Primary Care Provider] - 3-5 Days [facility] [Outside] - 3-5 Days Forms: Work/School Release Form(ED) This documentation as recorded by the RAFAEL glover JASMINE,accurately reflects the service I personally performed and the decisions made by me, ZULMA SANTANA PA.
[2016-07-18 00:37] VITALS: BP 120/66
== END 2016-07-18 00:40 | disposition home or self-care (01) ==
LOC: ED 15:46
DX: N76.0 Acute vaginitis (principal); A64 Unspecified sexually transmitted disease; Z20.828 Contact with and (suspected) exposure to other viral communicable diseases; I10 Essential (primary) hypertension; J45.909 Unspecified asthma, uncomplicated; F17.200 Nicotine dependence, unspecified, uncomplicated
CPT/HCPCS: 81001; 81025; 87210; 87591; 96372; 99283; J0696; J1885; Q0163

== ENCOUNTER 2016-08-27 16:59 | Emergency (ER) | payer SELFPAY ==
[2016-08-27 17:18] VITALS: BP 142/79
[2016-08-27 17:55] LABS: Bilirubin,Urine NEG (Negative); Blood,Urine NEG (Negative); Ketones,Urine NEG (Negative); Leukocyte Esterase,Urine TR (Negative); Mucus,Urine FEW /HPF; Nitrite,Urine NEG (Negative); Protein,Urine <15 mg/dL mg/dL (Negative); Urobilinogen,Urine < 2.0 mg/dL (<2.0); WBC,Urine < 1.0 /HPF (0.0-6.0)
[2016-08-27] MEDS ORDERED: NORCO 7.5/325 PO ONE (18:11)
[2016-08-27] MEDS ORDERED: FLEXERIL PO ONE (18:12)
[2016-08-27] MEDS ORDERED: TORADOL IM ONE (18:12)
--- NOTE | 2016-08-27 18:24 | Emergency Department Report ---
ED Back Pain/Injury HPI - General Source: patient Limitations: No Limitations - History of Present Illness Initial Comments: 41 year old female presents to ED with lower back pain x3 days. patient denies injury or trauma. patient states she has history of recurrent UTI. patient is stable, neurologically intact and in no acute distress. MD Complaint: back pain Similar Symptoms Previously: Yes Radiation: none Severity: mild Consistency: constant Improves With: medication Associated Symptoms: denies other symptoms <CHARLY MACHADO - Last Filed: 08/27/16 18:38> <ZAY GALLO - Last Filed: 08/27/16 19:52> - General Chief Complaint: Back Pain/Injury Stated Complaint: LOWER BACK PAIN - Related Data Previous Rx's Medication Instructions Recorded Last Taken Type guaiFENesin/CODEINE [Robitussin AC] 15 ml PO Q6H PRN #100 ml 06/07/14 Unknown Rx ALBUTEROL Inhaler [ProAir HFA 1 puff IH Q4H PRN #1 inha 03/30/16 Unknown Rx Inhaler] Aspirin [Aspirin BABY CHEW TAB] 81 mg PO QDAY #30 tab.chew 03/30/16 Unknown Rx AtorvaSTATin [Lipitor] 20 mg PO QHS #30 tablet 03/30/16 Unknown Rx Azithromycin [Zithromax TAB] 500 mg PO QDAY #4 tablet 03/30/16 Unknown Rx predniSONE [Deltasone] 50 mg PO QDAY #5 tab 03/30/16 Unknown Rx Cyclobenzaprine [Flexeril] 10 mg PO QHS PRN #20 tablet 08/27/16 Unknown Rx Ibuprofen [Motrin] 600 mg PO Q8H PRN #30 tablet 08/27/16 Unknown Rx Sulfamethoxazole/Trimethoprim 1 each PO BID #10 tablet 08/27/16 Unknown Rx [Bactrim DS TAB] Allergies Allergy/AdvReac Type Severity Reaction Status Date / Time Penicillins Allergy Unknown Verified 06/05/14 18:11 ED Review of Systems ROS: Stated complaint: LOWER BACK PAIN Other details as noted in HPI Constitutional: denies: chills, fever Eyes: denies: eye pain, eye discharge, vision change ENT: denies: ear pain, throat pain Respiratory: denies: cough, shortness of breath, wheezing Cardiovascular: denies: chest pain, palpitations Endocrine: no symptoms reported Gastrointestinal: denies: abdominal pain, nausea, vomiting, diarrhea Genitourinary: urgency, frequency. denies: dysuria, hematuria, discharge Musculoskeletal: back pain. denies: joint swelling, arthralgia Skin: denies: rash, lesions Neurological: denies: headache, weakness, paresthesias Psychiatric: denies: anxiety, depression Hematological/Lymphatic: denies: easy bleeding, easy bruising <CHARLY MACHADO - Last Filed: 08/27/16 18:38> ROS: Stated complaint: LOWER BACK PAIN Other details as noted in HPI <ZAY GALLO - Last Filed: 08/27/16 19:52> ED Past Medical Hx - Past Medical History Medical history: asthma, hypertension BRONCHITIS Surgical history: Psychiatric history: no pertinent history LMP comments: other (July 25) Family history: no significant family history <CHARLY MACHADO - Last Filed: 08/27/16 18:38> ED Back Pain Physical Exam - Exam General: Vital signs noted. No distress. Alert and acting appropriately. Back/Abdomen: Yes Flank Tenderness (CVA tenderness), No Abdominal Tenderness Neuro: Yes Normal Sensation, Yes Normal DTR's, Yes Normal Gait, No Motor Weakness <CHARLY MACHADO - Last Filed: 08/27/16 18:38> - Exam General: Vital signs noted. No distress. Alert and acting appropriately. <ZAY GALLO A - Last Filed: 08/27/16 19:52> ED Course Vital Signs 08/27/16 17:13 Temperature 98.4 F Pulse Rate 87 Respiratory 20 Rate Blood Pressure 142/79 O2 Sat by Pulse 100 Oximetry <CHARLY MACHADO - Last Filed: 08/27/16 18:38> Vital Signs 08/27/16 17:13 Temperature 98.4 F Pulse Rate 87 Respiratory 20 Rate Blood Pressure 142/79 O2 Sat by Pulse 100 Oximetry <ZAY GALLO - Last Filed: 08/27/16 19:52> Ed Back Pain Tests - Tests Tests: Normal UA <CHARLY MACHADO - Last Filed: 08/27/16 18:38> ED Medical Decision Making - Lab Data Labs 08/27/16 17:34 Urine Color Yellow Urine Turbidity Clear Urine pH 6.0 Ur Specific [place] 1.016 Urine Protein <15 mg/dl Urine Glucose (UA) Neg Urine Ketones Neg Urine Blood Neg Urine Nitrite Neg Urine Bilirubin Neg Urine Urobilinogen < 2.0 Ur Leukocyte Esterase Tr Urine WBC (Auto) < 1.0 Urine RBC (Auto) 3.0 U Epithel Cells (Auto) 1.0 Urine Mucus Few Urine HCG, Qual Negative <GERALDO MACHADOAhmet Guo - Last Filed: 08/27/16 18:38> - Lab Data Result diagrams: 08/27/16 19:04 08/27/16 19:04 - Radiology Data Radiology results: report reviewed, image reviewed FINAL REPORT PROCEDURE: CT ABDOMEN PELVIS WO CON TECHNIQUE: Computerized axial tomography of the abdomen and pelvis was performed without intravenous contrast. This study is performed without intravascular contrast material and its sensitivity for abdominal and pelvic pathology, including neoplasms, inflammation, abscess, free fluid, thrombosis, arterial dissection and infarction, is reduced compared with a contrast enhanced study. HISTORY: flank pain/CVA tenderness COMPARISON: No prior studies are available for comparison. FINDINGS: Lower Lung malik: No focal abnormalities are seen. Upper Abdomen: Gallbladder is contracted. Gallbladder density is heterogeneous. I cannot exclude sludge or gallstones. Gallbladder is otherwise unremarkable. The unenhanced images of the liver, the the right adrenal gland, the pancreas in the spleen are unremarkable. Low-density nodules seen in the left adrenal gland measuring 9.5 millimeters appears to represent a small adrenal adenoma. The adrenal glands otherwise are unremarkable. Kidneys, Ureters and Urinary bladder: No abnormalities are seen. No renal or ureteral calculi are seen. There are no renal masses identified. No hydronephrosis. The urinary bladder is unremarkable. Multiple calcifications are seen in the lower pelvis which appear to represent phleboliths. No ureteral calculi are seen Retroperitoneum: Abdominal aorta appears normal. Nonspecific subcentimeter lymph nodes are seen in the retroperitoneum. No pathologically enlarged lymph nodes are identified. Bowel: Submucosal layer of the right side of the colon is mildly prominent. This is nonspecific. I cannot exclude a mild nonspecific colitis. The colon is otherwise unremarkable. Bowel loops otherwise are unremarkable. No evidence of bowel obstruction. There is no free intraperitoneal gas. Normal-appearing appendix is seen in the right lower quadrant. Reproductive organs: Uterus appears minimally lobulated. I cannot exclude small uterine fibroids. There is a nodular density projecting posterior to the uterus. Cystic change appears to be present measuring 2.6 centimeter. I suspect this represents 1 of the ovaries probably with a maturing follicle. Consider follow-up pelvic ultrasound for further evaluation. Other: No acute bony abnormalities are identified. IMPRESSION: Nodular density visualized posterior to the uterus may represent 1 of the ovaries, possibly the left ovary with cystic change. Consider follow-up pelvic ultrasound. Uterus appears slightly lobulated. I cannot exclude small fibroids. Pelvis is otherwise unremarkable. Gallbladder is contracted and heterogeneous in density. I cannot exclude sludge or gallstones. Consider follow-up gallbladder ultrasound after the patient has been appropriately fasting to improve visualization of the gallbladder. Kidneys ureters and urinary bladder are unremarkable. Mild prominence submucosal layer right side of the colon. This is nonspecific. A mild nonspecific colitis cannot be excluded. Bowel loops otherwise are unremarkable.. Transcribed By: NATALIIA Dictated By: ITZ LIANG MD Electronically Authenticated By: ITZ LIANG MD Signed Date/Time: 08/27/161921 - Medical Decision Making This 41-year-old female was signed off to the Colleague MARY machado She presents with urinary tract infection CBC, CMP, urinalysis, CT scan ordered. CBC within normal limits CMP shows mild decreased sodium and chloride. Urinalysis shows trace leukocyte esterase CT scan of the abdomen was normal- see above results Discussed all findings with patient. Discussed the patient will treat with antibiotic for mild cystitis Discussed with patient to follow up with primary care physician Discussed return to ED if symptoms worsen or new symptoms arise Vital signs are stable patient is in no acute distress She is alert and oriented 3 showed a sounds are instructions given. <ZAY GALLO - Last Filed: 08/27/16 19:52> Critical care attestation.: If time is entered above; I have spent that time in minutes in the direct care of this critically ill patient, excluding procedure time. <CHARLY MACHADO - Last Filed: 08/27/16 18:38> Critical care attestation.: If time is entered above; I have spent that time in minutes in the direct care of this critically ill patient, excluding procedure time. <ZAY GALLO - Last Filed: 08/27/16 19:52> ED Disposition Is pt being admited?: No Does the pt Need Aspirin: No <CHARLY MACHADO - Last Filed: 08/27/16 18:38> Is pt being admited?: No Does the pt Need Aspirin: No Time of Disposition: 19:49 <ZAY GALLO - Last Filed: 08/27/16 19:52> Clinical Impression: UTI (urinary tract infection) Qualifiers: Urinary tract infection type: acute cystitis Hematuria presence: without hematuria Qualified Code(s): N30.00 - Acute cystitis without hematuria Disposition: TO HOME OR SELFCARE Condition: Stable Instructions: Urinary Tract Infection in Women (ED), Flank Pain (ED), Musculoskeletal Pain (ED) Prescriptions: Cyclobenzaprine [Flexeril] 10 mg PO QHS PRN #20 tablet PRN Reason: Muscle Spasm Ibuprofen [Motrin] 600 mg PO Q8H PRN #30 tablet PRN Reason: Pain Sulfamethoxazole/Trimethoprim [Bactrim DS TAB] 1 each PO BID #10 tablet Referrals: PRIMARY CARE, [Primary Care Provider] - 3-[address] [facility] [Outside] - 3-5 Days [facility] [Outside] - 3-5 Days Forms: Work/School Release Form, Accompanied Note
--- NOTE | 2016-08-27 19:26 | Cat Scan Report ---
FINAL REPORT PROCEDURE: CT ABDOMEN PELVIS WO CON TECHNIQUE: Computerized axial tomography of the abdomen and pelvis was performed without intravenous contrast. This study is performed without intravascular contrast material and its sensitivity for abdominal and pelvic pathology, including neoplasms, inflammation, abscess, free fluid, thrombosis, arterial dissection and infarction, is reduced compared with a contrast enhanced study. HISTORY: flank pain/CVA tenderness COMPARISON: No prior studies are available for comparison. FINDINGS: Lower Lung malik: No focal abnormalities are seen. Upper Abdomen: Gallbladder is contracted. Gallbladder density is heterogeneous. I cannot exclude sludge or gallstones. Gallbladder is otherwise unremarkable. The unenhanced images of the liver, the the right adrenal gland, the pancreas in the spleen are unremarkable. Low-density nodules seen in the left adrenal gland measuring 9.5 millimeters appears to represent a small adrenal adenoma. The adrenal glands otherwise are unremarkable. Kidneys, Ureters and Urinary bladder: No abnormalities are seen. No renal or ureteral calculi are seen. There are no renal masses identified. No hydronephrosis. The urinary bladder is unremarkable. Multiple calcifications are seen in the lower pelvis which appear to represent phleboliths. No ureteral calculi are seen Retroperitoneum: Abdominal aorta appears normal. Nonspecific subcentimeter lymph nodes are seen in the retroperitoneum. No pathologically enlarged lymph nodes are identified. Bowel: Submucosal layer of the right side of the colon is mildly prominent. This is nonspecific. I cannot exclude a mild nonspecific colitis. The colon is otherwise unremarkable. Bowel loops otherwise are unremarkable. No evidence of bowel obstruction. There is no free intraperitoneal gas. Normal-appearing appendix is seen in the right lower quadrant. Reproductive organs: Uterus appears minimally lobulated. I cannot exclude small uterine fibroids. There is a nodular density projecting posterior to the uterus. Cystic change appears to be present measuring 2.6 centimeter. I suspect this represents 1 of the ovaries probably with a maturing follicle. Consider follow-up pelvic ultrasound for further evaluation. Other: No acute bony abnormalities are identified. IMPRESSION: Nodular density visualized posterior to the uterus may represent 1 of the ovaries, possibly the left ovary with cystic change. Consider follow-up pelvic ultrasound. Uterus appears slightly lobulated. I cannot exclude small fibroids. Pelvis is otherwise unremarkable. Gallbladder is contracted and heterogeneous in density. I cannot exclude sludge or gallstones. Consider follow-up gallbladder ultrasound after the patient has been appropriately fasting to improve visualization of the gallbladder. Kidneys ureters and urinary bladder are unremarkable. Mild prominence submucosal layer right side of the colon. This is nonspecific. A mild nonspecific colitis cannot be excluded. Bowel loops otherwise are unremarkable..
[2016-08-27 19:31] LABS: Basophils % (Auto) 0.9 % (0.0-1.8); Eosinophils % (Auto) 3.6 % (0.0-4.3); Hematocrit 28.8 % (30.3-42.9); Hemoglobin 8.8 gm/dl (10.1-14.3); Mean Corpuscular HGB Conc 31 % (30-34); Mean Corpuscular Hemoglobin 20 pg (28-32); Mean Corpuscular Volume 66 fl (79-97); Platelet Count 215 K/mm3 (140-440); Red Blood Count 4.34 M/mm3 (3.65-5.03); Red Cell Distribution Width 19.6 % (13.2-15.2); White Blood Count 7.8 K/mm3 (4.5-11.0)
[2016-08-27 19:33] LABS: Anion Gap 16 mmol/L; BUN/Creatinine Ratio 12.22; Blood Urea Nitrogen 11 mg/dL (7-17); Calcium 8.9 mg/dL (8.4-10.2); Carbon Dioxide 25 mmol/L (22-30); Chloride 97.8 mmol/L (98-107); Glucose 97 mg/dL (65-100); Potassium 4.3 mmol/L (3.6-5.0); Sodium 134 mmol/L (137-145)
== END 2016-08-27 20:04 | disposition home or self-care (01) ==
LOC: ED 16:59
DX: R10.30 Lower abdominal pain, unspecified (principal); J45.909 Unspecified asthma, uncomplicated; I10 Essential (primary) hypertension; Z88.0 Allergy status to penicillin; Z79.82 Long term (current) use of aspirin
CPT/HCPCS: 36415; 74176; 80048; 81001; 81025; 85025; 96372; 99284; J1885

== ENCOUNTER 2017-03-07 10:57 | Emergency (ER) | payer OTHER ==
[2017-03-07] MEDS ORDERED: NACL 0.9% 500 ML 500 ML IV ONE (11:25)
[2017-03-07 11:52] LABS: Hematocrit 30.1 % (30.3-42.9); Mean Corpuscular HGB Conc 30 % (30-34); Platelet Count 253 K/mm3 (140-440); Red Blood Count 4.34 M/mm3 (3.65-5.03)
[2017-03-07 11:53] LABS: Mean Corpuscular Hemoglobin 21 pg (28-32); Mean Corpuscular Volume 69 fl (79-97); Red Cell Distribution Width 20.3 % (13.2-15.2)
[2017-03-07] MEDS ORDERED: TYLENOL PO ONE (11:55)
[2017-03-07 11:58] LABS: INR 1.01 (0.87-1.13)
[2017-03-07] MEDS ORDERED: ZOFRAN IV ONE ×2 (11:59→20:27)
[2017-03-07] MEDS ORDERED: TESSALON PERLES PO ONE (11:59)
[2017-03-07] MEDS ORDERED: ZITHROMAX PO ONE (11:59)
[2017-03-07] MEDS ORDERED: NACL 0.9% 1000 ML 1,000 ML IV ONE (11:59)
[2017-03-07] MEDS ORDERED: TORADOL IV ONE (11:59)
[2017-03-07] MEDS ORDERED: MAGNESIUM SULFATE 2GM/50ML 2 GM/50 ML BAG IV ONE (11:59)
[2017-03-07] MEDS ORDERED: MORPHINE IV ONE ×2 (11:59→16:15)
[2017-03-07] MEDS ORDERED: XOPENEX IH ONE ×2 (12:00→16:15)
[2017-03-07] MEDS ORDERED: ATROVENT IH ONE (12:00)
[2017-03-07 12:02] LABS: Alanine Aminotransferase 64 units/L (7-56); Albumin 4.1 g/dL (3.9-5); BUN/Creatinine Ratio 13; Blood Urea Nitrogen 9 mg/dL (7-17); Calcium 8.9 mg/dL (8.4-10.2); Hemolysis Index 0
--- NOTE | 2017-03-07 12:14 | Emergency Department Report ---
ED Fever HPI - General Chief Complaint: Fever Stated Complaint: ASTHMA/CP Time Seen by Provider: 03/07/17 11:51 Source: patient Exam Limitations: no limitations - History of Present Illness Initial Comments: 41-year-old female with a past medical history of asthma and hypertension presents to the Hospital complains of fever, cough, and wheezing for the past 4 days. Cough is nonproductive. Patient complains of intermittent 7/10 sharp left-sided chest pain that is worse with coughing, palpation, and movement. Continued wheezing and shortness of breath. Patient did not receive her flu shot. She denies sick contacts or recent travel. Denies previous history of intubations ED Review of Systems ROS: Stated complaint: ASTHMA/CP Other details as noted in HPI Comment: All other systems reviewed and negative Other: Constitutional: As per HPI Eyes: No eye pain visual changes ENT: No ear pain or throat pain Neck: Denies pain Respiratory: As per HPI Cardiovascular: Denies palpitations, syncope GI: Denies abdominal pain, nausea, vomiting, diarrhea : Denies dysuria Musculoskeletal: Denies back pain Skin: Denies rash, lesions, erythema Neurologic: Denies headache, numbness, weakness Psychiatric: Denies suicidal ideation, hallucinations ED Past Medical Hx - Past Medical History Hx Hypertension: Yes Hx Asthma: Yes Additional medical history: BRONCHITIS - Surgical History Additional Surgical History: "" - Social History Smoking Status: Never Smoker Substance Use Type: Alcohol - Medications Home Medications: Home Medications Medication Instructions Recorded Confirmed Last Taken Type No Known Home Medications [No 03/07/17 03/07/17 Unknown History Reported Home Medications] ED Physical Exam - General Limitations: No Limitations - Other Other exam information: General: No limitations, patient is alert in no acute distress Head exam: Atraumatic, normocephalic Eyes exam: Normal appearance ENT: Moist mucous membrane, normal oropharynx Neck exam: Normal inspection, full range of motion, no meningismus nontender Respiratory exam: Bilateral wheezing with mild tachypnea. No accessory muscle use Cardiovascular: Tachycardic regular rhythm. Reproducible left-sided chest wall tenderness to palpation Abdomen: Soft, nondistended, and nontender, with normal bowel sounds, no rebound, or guarding Extremity: Full range of motion normal inspection no deformity, no calf tenderness or edema Back: Normal Inspection, full range of motion, no tenderness Neurologic: Alert, oriented x3, cranial nerves intact, no motor or sensory deficit Psychiatric: normal affect, normal mood Skin: Warm, dry, intact ED Course Vital Signs 03/07/17 03/07/17 03/07/17 11:22 12:00 12:19 Temperature 102.9 F H Pulse Rate 112 H Pulse Rate [ 112 H 110 H Anterior Bilateral Throughout] Respiratory 20 Rate Respiratory 20 22 Rate [Anterior Bilateral Throughout] Blood Pressure 151/86 O2 Sat by Pulse 98 Oximetry 03/07/17 03/07/17 03/07/17 16:25 16:41 19:09 Temperature Pulse Rate Pulse Rate [ 115 H 118 H Anterior Bilateral Throughout] Respiratory 20 Rate Respiratory 20 18 Rate [Anterior Bilateral Throughout] Blood Pressure O2 Sat by Pulse Oximetry - Reevaluation(s) Reevaluation #1: 03/07/17 12:28 Treatment initiated for pain, fever, tachcardia (IV fluids), nebs for wheezing, solumedrol Medrol, mag, azithro Reevaluation #2: 03/07/17 16:10 Patient has persistent wheezing and shortness of breath despite treatment. Will admit to hospital for further treatment ED Medical Decision Making - Lab Data Result diagrams: 03/07/17 11:31 03/07/17 11:31 Lab Results 03/07/17 03/07/17 03/07/17 Range/Units 11:31 11:31 11:31 WBC 6.9 (4.5-11.0) K/mm3 RBC 4.34 (3.65-5.03) M/mm3 Hgb 9.0 L (10.1-14.3) gm/dl Hct 30.1 L (30.3-42.9) % MCV 69 L (79-97) fl MCH 21 L (28-32) pg MCHC 30 (30-34) % RDW 20.3 H (13.2-15.2) % Plt Count 253 (140-440) K/mm3 Lymph % (Auto) Rn [facility] [place] % (Auto) [facility] Eos % (Auto) Rn [facility] Baso % (Auto) Rn Internal Medicine Lymph # [facility] [place] # [facility] Eos # [facility] Baso # [facility]n [facility] Seg Neutrophils % Rn [facility] Medicine Seg Neutrophils # Rn [facility] PT 13.8 (12.2-14.9) Sec. INR 1.01 (0.87-1.13) VBG pH (7.320-7.420) Sodium 135 L (137-145) mmol/L Potassium 4.5 (3.6-5.0) mmol/L Chloride 96.8 L (98-107) mmol/L Carbon Dioxide 23 (22-30) mmol/L Anion Gap 20 mmol/L BUN 9 (7-17) mg/dL Creatinine 0.7 (0.7-1.2) mg/dL Estimated GFR > 60 ml/min BUN/Creatinine Ratio 13 % Glucose 93 (65-100) mg/dL Lactic Acid (0.7-2.0) mmol/L Calcium 8.9 (8.4-10.2) mg/dL Total Bilirubin 0.80 (0.1-1.2) mg/dL AST 65 H (5-40) units/L ALT 64 H (7-56) units/L Alkaline Phosphatase 81 (35-129) units/L Total Protein 9.4 H (6.3-8.2) g/dL Albumin 4.1 (3.9-5) g/dL Albumin/Globulin Ratio 0.8 % 03/07/17 03/07/17 03/07/17 Range/Units 11:31 11:31 14:44 WBC (4.5-11.0) K/mm3 RBC (3.65-5.03) M/mm3 Hgb (10.1-14.3) gm/dl Hct (30.3-42.9) % MCV (79-97) fl MCH (28-32) pg MCHC (30-34) % RDW (13.2-15.2) % Plt Count (140-440) K/mm3 Lymph % (Auto) [place] % (Auto) Eos % (Auto) Baso % (Auto) Lymph # [place] # Eos # Baso # Seg Neutrophils % Seg Neutrophils # PT (12.2-14.9) Sec. INR (0.87-1.13) VBG pH 7.432 H (7.320-7.420) Sodium (137-145) mmol/L Potassium (3.6-5.0) mmol/L Chloride (98-107) mmol/L Carbon Dioxide (22-30) mmol/L Anion Gap mmol/L BUN (7-17) mg/dL Creatinine (0.7-1.2) mg/dL Estimated GFR ml/min BUN/Creatinine Ratio % Glucose (65-100) mg/dL Lactic Acid 1.30 1.90 (0.7-2.0) mmol/L Calcium (8.4-10.2) mg/dL Total Bilirubin (0.1-1.2) mg/dL AST (5-40) units/L ALT (7-56) units/L Alkaline Phosphatase (35-129) units/L Total Protein (6.3-8.2) g/dL Albumin (3.9-5) g/dL Albumin/Globulin Ratio % influenza neg - EKG Data -: EKG Interpreted by Ma EKG shows normal: sinus rhythm, axis (48), QRS complexes (69), ST-T waves (no stemi) Rate: tachycardia (105) - Radiology Data Radiology results: report reviewed (cxr: naf read by radiologist) - Medical Decision Making PT received azithromycin. No improvement in symptoms after ED treatment. Will admit to the hospital for further treatment Influenza test pending at disposition blood cultures pending - Differential Diagnosis pneumonia, bronchitis, viral syndrome, influenza Critical Care Time: No Critical care attestation.: If time is entered above; I have spent that time in minutes in the direct care of this critically ill patient, excluding procedure time. ED Disposition Clinical Impression: Acute asthmatic bronchitis, Viral syndrome, Fever, Chest wall pain Disposition: OP ADMIT IP TO THIS HOSP Is pt being admited?: Yes Condition: Stable Time of Disposition: 16:18 (Dr Talley/hosp)
--- NOTE | 2017-03-07 13:06 | XRay Report ---
Chest 2 views: History: Possible sepsis. Findings: Normal cardiomediastinal silhouette. Trachea is midline. No consolidation, pneumothorax or pleural effusion. Impression: No acute cardiopulmonary findings.
[2017-03-07] MEDS ORDERED: MORPHINE ONE ×2 (13:30→17:01)
[2017-03-07 16:22] LABS: Bilirubin,Urine NEG (Negative); Blood,Urine NEG (Negative); Color,Urine Yellow (Yellow); Mucus,Urine FEW /HPF; Nitrite,Urine NEG (Negative); Protein,Urine <15 mg/dL mg/dL (Negative)
[2017-03-07 19:33] LABS: Amphetamine Screen,Urine PRESUMPTIVE NEGATIVE; Cannabinoid Screen,Urine PRESUMPTIVE NEGATIVE; Cocaine Screen,Urine PRESUMPTIVE NEGATIVE; Methadone Screen,Urine PRESUMPTIVE NEGATIVE; Opiate Screen,Urine PRESUMPTIVE NEGATIVE
[2017-03-07 19:50] LABS: Benzodiazepines Screen,Urine PRESUMPTIVE POSITIVE
[2017-03-07 20:03] VITALS: BP 133/79
[2017-03-07] MEDS ORDERED: ZOFRAN ONE (20:27)
== END 2017-03-07 22:15 | disposition admitted as inpatient to this hospital (09) ==
LOC: ED 10:57
DX: J20.9 Acute bronchitis, unspecified (principal); J45.909 Unspecified asthma, uncomplicated; B34.9 Viral infection, unspecified; I10 Essential (primary) hypertension
CPT/HCPCS: 36415; 71046; 80053; 80307; 81001; 82140; 82805; 85025; 85610; 87040; 87086; 87400; 93005; 93010; 94640; 96365; 96375; 96376; 99285; J1885; J2270; J2405; J2930; J3475; J7030; J7040

== ENCOUNTER 2021-02-21 00:12 | Emergency (ER) | payer OTHER ==
[2021-02-21] MEDS ORDERED: methylPREDNISolone Sod Succinate 125 MG/2 ML INJ IV ONE (00:27)
[2021-02-21] MEDS ORDERED: ALBUTEROL 2.5 MG/3 ML NEBU IH ONE (00:27)
[2021-02-21] MEDS ORDERED: IPRATROPIUM 0.02% NEBU 2.5 ML IH ONE (00:27)
[2021-02-21] MEDS ORDERED: MAGNESIUM SULFATE 2 GM/50 ML BAG IV ONE (00:27)
--- NOTE | 2021-02-21 00:30 | Emergency Department Report ---
ED Asthma HPI - General Chief Complaint: Dyspnea/Respdistress Stated Complaint: SOB Time Seen by Provider: 02/21/21 00:22 Source: patient Mode of arrival: Ambulatory Limitations: No Limitations - History of Present Illness Initial Comments: Patient is 45 years old female with history of asthma. Patient presented to the ER with a chief complaint of asthma attack. Patient stated that she started having some shortness of breath and wheezing this afternoon. Patient stated that she used albuterol several times with no improvement. Patient denies any fever or chills. No chest pain. Patient stated that she does not smoke but her kids to smoke in the house. MD Complaint: "asthma attack", shortness of breath, wheezing -: This afternoon Severity: moderate Context: recent URI Treatments Prior to Arrival: inhaled bronchodilator - Related Data Current Asthma Therapy: inhaled bronchodilator Previous Rx's Medication Instructions Recorded Last Taken Type Albuterol Sulfate [Albuterol 0.63% 0.63 mg IH TID PRN #1 box 03/07/17 Unknown Rx NEBS] Budesonide [Pulmicort] 0.5 mg IH Q12HR #1 box 03/07/17 Unknown Rx Ciprofloxacin HCl [Ciprofloxacin 500 mg PO Q12H #12 tab 03/07/17 Unknown Rx TAB] Ipratropium [Atrovent NEB] 0.5 mg IH Q8HRT #1 box 03/07/17 Unknown Rx Nebulizer and Compressor [[place] 1 each MC DAILY PRN #1 each 03/07/17 Unknown Rx Choice Nebulizer] Prednisone [predniSONE 10 mg 10 mg PO .TAPER #1 tab.ds.pk 03/07/17 Unknown Rx (6-Day Pack, 21 Tabs)] Allergies Allergy/AdvReac Type Severity Reaction Status Date / Time Penicillins Allergy Unknown Verified 06/05/14 18:11 ED Review of Systems ROS: Stated complaint: SOB Other details as noted in HPI Comment: All other systems reviewed and negative Constitutional: denies: chills Respiratory: cough, shortness of breath, SOB with exertion, SOB at rest, wheezing Cardiovascular: denies: chest pain, palpitations Gastrointestinal: denies: abdominal pain, nausea, vomiting Musculoskeletal: denies: back pain Neurological: denies: headache, weakness, numbness, paresthesias, confusion ED Past Medical Hx - Past Medical History Previous Medical History?: No Hx Hypertension: Yes Hx Asthma: Yes Additional medical history: BRONCHITIS - Surgical History Past Surgical History?: No Additional Surgical History: "" - Social History Smoking Status: Never Smoker Substance Use Type: Alcohol - Medications Home Medications: Home Medications Medication Instructions Recorded Confirmed Last Taken Type Albuterol Sulfate [Albuterol 0.63% 0.63 mg IH TID PRN #1 box 03/07/17 Unknown Rx NEBS] Budesonide [Pulmicort] 0.5 mg IH Q12HR #1 box 03/07/17 Unknown Rx Ciprofloxacin HCl [Ciprofloxacin 500 mg PO Q12H #12 tab 03/07/17 Unknown Rx TAB] Ipratropium [Atrovent NEB] 0.5 mg IH Q8HRT #1 box 03/07/17 Unknown Rx Nebulizer and Compressor [[place] 1 each MC DAILY PRN #1 each 03/07/17 Unknown Rx Choice Nebulizer] Prednisone [predniSONE 10 mg 10 mg PO .TAPER #1 tab.ds.pk 03/07/17 Unknown Rx (6-Day Pack, 21 Tabs)] ED Physical Exam - General Limitations: No Limitations General appearance: alert, in distress - Head Head exam: Present: atraumatic, normocephalic, normal inspection - Eye Eye exam: Present: normal appearance - ENT ENT exam: Present: normal exam, normal orophraynx, mucous membranes moist - Neck Neck exam: Present: normal inspection, full ROM. Absent: tenderness, meningismus - Respiratory Respiratory exam: Present: respiratory distress, wheezes, rhonchi, accessory muscle use, decreased breath sounds, prolonged expiratory. Absent: rales - Cardiovascular Cardiovascular Exam: Present: tachycardia - GI/Abdominal GI/Abdominal exam: Present: soft, normal bowel sounds. Absent: distended, tenderness, guarding, rebound, rigid, organomegaly, mass, bruit, pulsatile mass, hernia - Extremities Exam Extremities exam: Present: normal inspection, full ROM, normal capillary refill. Absent: tenderness, pedal edema, calf tenderness - Back Exam Back exam: Present: normal inspection, full ROM. Absent: CVA tenderness (R), CVA tenderness (L) - Neurological Exam Neurological exam: Present: alert, oriented X3, CN II-XII intact - Psychiatric Psychiatric exam: Present: normal mood - Skin Skin exam: Present: warm, intact, normal color ED Course Vital Signs 02/21/21 02/21/21 00:14 00:49 Temperature 98.8 F Pulse Rate 114 H Pulse Rate [ 101 H Bilateral Throughout] Respiratory 22 Rate Respiratory 20 Rate [Bilateral Throughout] Blood Pressure 143/79 [Left] O2 Sat by Pulse 98 Oximetry ED Medical Decision Making - Lab Data Result diagrams: 02/21/21 00:44 02/21/21 00:44 - Radiology Data Radiology results: report reviewed - Medical Decision Making Patient is 45 years old female with history of asthma. Patient presented to the ER with a chief complaint of asthma attack. Patient stated that she started having some shortness of breath and wheezing this afternoon. Patient stated that she used albuterol several times with no improvement. Patient denies any fever or chills. No chest pain. Patient stated that she does not smoke but her kids to smoke in the house. Patient received albuterol, Atrovent, Solu-Medrol and magnesium sulfate. Patient stated that she is feeling much better. On exam, lungs with mild wheezing. Patient given prescription for prednisone, albuterol and advised to follow-up with her primary doctor in the next 2 to 3 days and to return to the ER if he develop any new symptoms. Critical care attestation.: If time is entered above; I have spent that time in minutes in the direct care of this critically ill patient, excluding procedure time. ED Disposition Clinical Impression: Asthma exacerbation attacks Disposition: 01 HOME / SELF CARE / HOMELESS Is pt being admited?: No Condition: Stable Instructions: Asthma, Adult Referrals: PRIMARY CARE, [Primary Care Provider] - 3-5 Days
[2021-02-21 01:16] LABS: Basophils # (Auto) 0.1 K/mm3 (0.0-0.1); Basophils % (Auto) 0.5 % (0.0-1.8); Eosinophils % (Auto) 0.3 % (0.0-4.3); Hematocrit 29.7 % (30.3-42.9); Hemoglobin 8.9 gm/dl (10.1-14.3); Lymphocytes # (Auto) 2.1 K/mm3 (1.2-5.4); Lymphocytes % (Auto) 14.1 % (13.4-35.0); Mean Corpuscular HGB Conc 30 % (30-34); Mean Corpuscular Volume 69 fl (79-97); Monocytes % (Auto) 6.8 % (0.0-7.3); Platelet Count 270 K/mm3 (140-440); Red Blood Count 4.31 M/mm3 (3.65-5.03); Red Cell Distribution Width 18.4 % (13.2-15.2)
[2021-02-21 01:36] LABS: Blood Urea Nitrogen 9 mg/dL (7-17); Calcium 9.2 mg/dL (8.4-10.2); Hemolysis Index 2
[2021-02-21 01:39] LABS: BUN/Creatinine Ratio 13
--- NOTE | 2021-02-21 01:55 | XRay Report ---
CHEST 1 VIEW 02/21/2021 1:30 AM INDICATION / CLINICAL INFORMATION: Asthma. COMPARISON: 2 views of the chest from 03/07/2017. FINDINGS: SUPPORT DEVICES: None. HEART / MEDIASTINUM: No significant abnormality. LUNGS / PLEURA: Lung volumes are reduced with probable bibasilar atelectasis. The lungs are otherwise clear. No significant pleural effusion. No pneumothorax. ADDITIONAL FINDINGS: No significant additional findings. IMPRESSION: Probable bibasal atelectasis without other acute findings. Signer Name: George Saavedra MD Signed: 02/21/2021 1:50 AM Workstation Name: [id number]
[2021-02-21 05:52] VITALS: BP 127/68
== END 2021-02-21 05:49 | disposition home or self-care (01) ==
LOC: ED 00:12
DX: J45.901 Unspecified asthma with (acute) exacerbation (principal); I10 Essential (primary) hypertension; Z72.89 Other problems related to lifestyle; Z88.0 Allergy status to penicillin; Z79.899 Other long term (current) drug therapy
CPT/HCPCS: 36415; 71045; 80048; 85025; 94644; 96365; 96375; 99284; J2930; J3475